=== PATIENT | male | born 1965 | race Caucasian/White ===

== ENCOUNTER 2024-05-21 10:27 | Outpatient (CLI) | payer OTHER, SELFPAY | END 2024-05-21 10:28 | disposition home or self-care (01) | PROVIDERS: Visit Provider Family Medicine | DX: R03.0 Elevated blood-pressure reading, without diagnosis of hypertension (principal); E03.9 Hypothyroidism, unspecified; Z12.5 Encounter for screening for malignant neoplasm of prostate; E78.5 Hyperlipidemia, unspecified | CPT/HCPCS: 80048; 80061; 84443; 84460; G0103 ==